=== PATIENT | male | born 1970 | race Caucasian/White ===

== ENCOUNTER 2017-07-20 20:43 | Emergency (ER) | payer SELFPAY ==
[~2017-07-20] VITALS: Ht 185.4 cm; Wt 70.8 kg
[2017-07-20 21:16] VITALS: BP 139/88
--- NOTE | 2017-07-20 21:57 | NUR ---
PATIENT LEFT WITHOUT BEING SEEN BY . NO FURTHER CARE PROVIDED FOR PATIENT.
== END 2017-07-20 21:57 | disposition left against medical advice (07) ==
LOC: MED 20:43
DX: R20.0 Anesthesia of skin (principal); Z53.21 Procedure and treatment not carried out due to patient leaving prior to being seen by health care provider